=== PATIENT | male | born 1955 | race Caucasian/White ===

== ENCOUNTER → 2023-08-26 | Outpatient (REF) | payer MEDICARE, OTHER | LOC: M LAB REF 15:56 | PROVIDERS: ATTEND Surgery | DX: D17.1 Benign lipomatous neoplasm of skin and subcutaneous tissue of trunk (principal) ==

== ENCOUNTER → 2024-06-10 | Outpatient (REF) | payer MEDICARE, OTHER | LOC: M SFHCDERM 17:48 | PROVIDERS: ATTEND Physician Assistant | DX: D22.4 Melanocytic nevi of scalp and neck (principal) ==